=== PATIENT | female | born 1970 | race Caucasian/White ===

== ENCOUNTER 2020-08-22 01:46 | Emergency (ER) | payer BC, OTHER ==
[~2020-08-22] VITALS: Ht 157.5 cm; Wt 91.6 kg
[~2020-08-22 01:46] MED LIST: LISINOPRIL10 MG PO
[2020-08-22] MEDS ORDERED: KETOROLAC TROMETHAMINE 60 MG/2 ML VIAL IM ONE (02:00)
[2020-08-22] MEDS ORDERED: KETOROLAC TROMETHAMINE 60 MG/2 ML VIAL ONE (02:01)
[2020-08-22 03:11] VITALS: BP 181/98
[2020-08-22 03:17] LABS: CLARITY,URINE CLOUDY (CLEAR); COLOR,URINE YELLOW (YELLOW); LEUKOCYTE ESTERASE ,URINE TRACE (NEGATIVE)
[2020-08-22 03:18] LABS: BACTERIA,URINE MANY /HPF; BILIRUBIN,URINE NEGATIVE (NEGATIVE); EPITHELIAL CELLS,URINE MANY /LPF; KETONES,URINE NEGATIVE (NEGATIVE); NITRITE,URINE NEGATIVE (NEGATIVE); PROTEIN,URINE DIPSTICK NEGATIVE (NEGATIVE); RBC,URINE 21-50 /HPF (0-5); URINE UROBILINOGEN 0.2 mg/dL (0.2 - 1); WBC,URINE (MAN) >50 /HPF (0-5)
[2020-08-22] MEDS ORDERED: CLONIDINE HCL 0.1 MG TAB PO ONE (03:30)
[2020-08-22] MEDS ORDERED: CLONIDINE HCL 0.1 MG TAB ONE (03:32)
== END 2020-08-22 04:42 | disposition home or self-care (01) ==
LOC: ER 02:20
DX: M54.5 Low back pain (principal); S33.5XXA Sprain of ligaments of lumbar spine, initial encounter; N39.0 Urinary tract infection, site not specified; R03.0 Elevated blood-pressure reading, without diagnosis of hypertension; F41.9 Anxiety disorder, unspecified; F32.9 Major depressive disorder, single episode, unspecified
CPT/HCPCS: 74176; 81001; 99283; J1885

== ENCOUNTER → 2022-03-16 | Outpatient (CLI) | payer OTHER | LOC: CT 12:11 | PROVIDERS: ATTEND Family Medicine | DX: S06.0X0A Concussion without loss of consciousness, initial encounter (principal) | CPT/HCPCS: 70450 ==